=== PATIENT | male | born 1965 | race Caucasian/White ===

== ENCOUNTER 2021-10-09 13:47 | Emergency (ER) | payer BC ==
[~2021-10-09] VITALS: Ht 182.9 cm; Wt 90.7 kg
[2021-10-09 13:58] VITALS: BP_SYST 140
--- NOTE | 2021-10-09 13:58 | NUR ---
Patient to ER Tent to gown for evaluation. Side rails up.
--- NOTE | 2021-10-09 14:22 | NUR ---
PT COMES TO ER WITH C/O DIARRHEA -PROGRESSIVELY GETTNG WORSE FOR THE LAST TWO DAYS WITH FEVERS AND SEVERE INTERMITTENT CRAMPING. RESP EVEN AND UNLABORE,D ON RA @99%. ABD SOFT, ROUND, MILDLY TENDER TO PALPTION. DENIES VOMITTING, ABLE TO KEEP FLUIDS DOWN OKAY. REPEAT VS TAKEN, NOW WNL.
--- NOTE | 2021-10-09 14:36 | NUR ---
DR DUMONT IN TENT FOR EXAM.
[2021-10-09 14:55] VITALS: BP_SYST 129
[2021-10-09 15:58] LABS: BASOPHILS % (AUTO) 0.7 % (0.0-2.0); EOSINOPHILS % (AUTO) 0.5 % (0.0-4.0); HEMATOCRIT 44.1 % (36-54); HEMOGLOBIN 15.4 g/dL (14.0-18.0); LYMPHOCYTES # (AUTO) 1.1 K/uL (1.0-5.5); LYMPHOCYTES % (AUTO) 19.5 % (20.5-51.5); MEAN CORPUSCULAR HEMOGLOBIN 33 pg (27-31); MEAN CORPUSCULAR HGB CONC 35 % (32-36); MEAN CORPUSCULAR VOLUME 94 fL (79.0-98.0); MONOCYTES # (AUTO) 0.8 K/uL (0.0-1.0); NEUTROPHILS # (AUTO) 3.6 K/uL (1.8-7.7); NEUTROPHILS % (AUTO) 65.3 % (40.0-70.0); PLATELET COUNT (AUTO) 152 K/uL (130-430); RED BLOOD CELL COUNT(AUTO) 4.69 MIL/uL (4.2-6.2); RED CELL DISTRIBUTION WIDTH 13.9 % (9.0-15.0); WHITE BLOOD COUNT (AUTO) 5.5 K/uL (4.8-10.8)
[2021-10-09 16:26] LABS: ANION GAP 9 (5-15); CALCIUM 8.2 mg/dL (8.4-11.0); CHLORIDE 100 mmol/L (98-107); CREATININE 0.97 mg/dL (0.55-1.30); GLUCOSE 95 mg/dL (70-99); SODIUM SERUM 133 mmol/L (136-145); UREA NITROGEN, BLOOD 8 mg/dL (8-21)
[2021-10-09 16:29] LABS: GFR AFRICAN AMERICAN 103 mL/min (>90)
[2021-10-09 16:37] LABS: ALANINE AMINOTRANSFERASE 24 U/L (12-78); ALBUMIN 3.1 g/dL (3.4-4.8); AMYLASE 33 U/L (0-100); ASPARTATE AMINOTRANSFERASE 25 U/L (10-37); C-REACTIVE PROTEIN QUANT 20.9 mg/dL (0-0.5); LIPASE 77 U/L (73-393); TOTAL BILIRUBIN 0.7 mg/dL (0.0-1.0)
[2021-10-09 16:55] LABS: ACETONE, SERUM NEGATIVE (NEGATIVE)
--- NOTE | 2021-10-09 17:03 | NUR ---
Patient given written and verbal discharge instructions and verbalizes understanding. ER MD discussed with patient the results and treatment provided. Patient in stable condition. ID arm band removed. Rx of IBUPROFEN given. Patient educated on pain management and to follow up with PMD. Pain Scale . Opportunity for questions provided and answered. Medication side effect fact sheet provided.
[2021-10-09] MEDS ORDERED: IBUP-1971 PO (17:09)
== END 2021-10-09 17:49 | disposition home or self-care (01) ==
LOC: SED 13:47
DX: R19.7 Diarrhea, unspecified (principal); R10.9 Unspecified abdominal pain; R11.10 Vomiting, unspecified; Z79.899 Other long term (current) drug therapy; Z20.822 Contact with and (suspected) exposure to COVID-19
CPT/HCPCS: 36415; 76376; 80053; 82009; 82150; 83605; 83690; 85025; 86140; 99284

== ENCOUNTER 2022-11-17 13:14 | Emergency (ER) | payer BC ==
[~2022-11-17] VITALS: Ht 182.9 cm; Wt 95.3 kg
[~2022-11-17 13:14] MED LIST: IBUP-1971 PO
[2022-11-17 13:15] VITALS: BP_SYST 162; PULSE 83; RESP 18; TEMP 97.1; O2SAT 95
[2022-11-17] MEDS ORDERED: METOCLOPRAMIDE HCL 10 MG/2 ML VIAL IVP ONE (14:00)
[2022-11-17] MEDS ORDERED: MECLIZINE HCL 25 MG TABLET (ANITVERT) PO ONE (14:00)
[2022-11-17 14:21] LABS: BASOPHILS # (AUTO) 0.1 K/uL (0.0-0.2); BASOPHILS % (AUTO) 1.1 % (0.0-2.0); EOSINOPHILS # (AUTO) 0.2 K/uL (0.0-0.4); HEMATOCRIT 46.1 % (36-54); HEMOGLOBIN 15.4 g/dL (14.0-18.0); LYMPHOCYTES # (AUTO) 2.8 K/uL (1.0-5.5); LYMPHOCYTES % (AUTO) 33.2 % (20.5-51.5); MEAN CORPUSCULAR HEMOGLOBIN 32 pg (27-31); MEAN CORPUSCULAR HGB CONC 33 % (32-36); MEAN CORPUSCULAR VOLUME 96 fL (79.0-98.0); MONOCYTES # (AUTO) 0.9 K/uL (0.0-1.0); MONOCYTES % (AUTO) 10.6 % (1.7-9.3); NEUTROPHILS # (AUTO) 4.4 K/uL (1.8-7.7); NEUTROPHILS % (AUTO) 52.1 % (40.0-70.0); PLATELET COUNT (AUTO) 248 K/uL (130-430); RED BLOOD CELL COUNT(AUTO) 4.79 MIL/uL (4.2-6.2); RED CELL DISTRIBUTION WIDTH 13.9 % (9.0-15.0); WHITE BLOOD COUNT (AUTO) 8.4 K/uL (4.8-10.8)
[2022-11-17 14:31] LABS: ANION GAP 13 (5-15); CALCIUM 8.6 mg/dL (8.4-11.0); CARBON DIOXIDE 24 mmol/L (23-29); CHLORIDE 106 mmol/L (98-107); CREATININE 1.01 mg/dL (0.55-1.30); GFR AFRICAN AMERICAN 98 mL/min (>90); GLUCOSE 113 mg/dL (74-106); POTASSIUM 4.1 mmol/L (3.5-5.1); SODIUM SERUM 143 mmol/L (136-145); UREA NITROGEN, BLOOD 15 mg/dL (8-21)
[2022-11-17 14:35] LABS: GFR NON AFRICAN-AMERICAN 81 mL/min (>90); PROTHROMBIN TIME 10.2 SECS (9.5-12.5)
[2022-11-17 14:39] LABS: ALANINE AMINOTRANSFERASE 40 U/L (12-78); ALBUMIN 3.7 g/dL (3.4-4.8); ASPARTATE AMINOTRANSFERASE 17 U/L (10-37); TOTAL BILIRUBIN 0.5 mg/dL (0.0-1.0)
[2022-11-17] MEDS ORDERED: MECL-261 PO (15:21)
[2022-11-17 15:50] VITALS: BP_SYST 153; PULSE 82; RESP 17; TEMP 97.7; O2SAT 96
== END 2022-11-17 15:59 | disposition home or self-care (01) ==
LOC: SED 13:14
DX: R42 Dizziness and giddiness (principal); R11.0 Nausea; I10 Essential (primary) hypertension; Z79.899 Other long term (current) drug therapy
CPT/HCPCS: 99285; 70450; 71045; 80053; 85025; 85610; 85730; 84484; 36415; 93005; 76376; J8597; J2765

== ENCOUNTER 2023-06-02 13:02 | Emergency (ER) | payer BC ==
[~2023-06-02] VITALS: Ht 182.9 cm; Wt 98.9 kg
[~2023-06-02 13:02] MED LIST changes: +MECL-261 PO
[2023-06-02 13:13] VITALS: BP_SYST 158; PULSE 82; RESP 18; TEMP 97.8; O2SAT 96
[2023-06-02 15:56] LABS: BASOPHILS # (AUTO) 0.1 K/uL (0.0-0.2); BASOPHILS % (AUTO) 0.8 % (0.0-2.0); EOSINOPHILS # (AUTO) 0.3 K/uL (0.0-0.4); HEMATOCRIT 42.3 % (36-54); HEMOGLOBIN 14.8 g/dL (14.0-18.0); LYMPHOCYTES # (AUTO) 2.6 K/uL (1.0-5.5); LYMPHOCYTES % (AUTO) 30.7 % (20.5-51.5); MEAN CORPUSCULAR HEMOGLOBIN 34 pg (27-31); MEAN CORPUSCULAR HGB CONC 35 % (32-36); MEAN CORPUSCULAR VOLUME 96 fL (79.0-98.0); MONOCYTES % (AUTO) 12.3 % (1.7-9.3); NEUTROPHILS # (AUTO) 4.5 K/uL (1.8-7.7); NEUTROPHILS % (AUTO) 53.2 % (40.0-70.0); PLATELET COUNT (AUTO) 231 K/uL (130-430); RED BLOOD CELL COUNT(AUTO) 4.41 MIL/uL (4.2-6.2); RED CELL DISTRIBUTION WIDTH 13.9 % (9.0-15.0); WHITE BLOOD COUNT (AUTO) 8.5 K/uL (4.8-10.8)
[2023-06-02 16:05] LABS: CALCIUM 8.4 mg/dL (8.4-11.0)
[2023-06-02] MEDS ORDERED: AMOX-423 PO (16:18)
[2023-06-02 16:46] VITALS: BP_SYST 132; PULSE 76; RESP 17; TEMP 97.8; O2SAT 98
== END 2023-06-02 16:46 | disposition home or self-care (01) ==
LOC: SED 13:02
DX: K57.92 Diverticulitis of intestine, part unspecified, without perforation or abscess without bleeding (principal); R10.32 Left lower quadrant pain; I10 Essential (primary) hypertension; Z79.899 Other long term (current) drug therapy
CPT/HCPCS: 36415; 80048; 82150; 83605; 83690; 85025; 99284